=== PATIENT | male | born 1980 | race Two or more races ===

== ENCOUNTER 2022-11-24 04:58 | Emergency (ER) | payer MEDICAID ==
[~2022-11-24] VITALS: Ht 167.6 cm; Wt 95.4 kg
[2022-11-24 06:10] LABS: Urine Bacteria NONE SEEN /hpf (None Seen); Urine Blood Negative /uL (Negative); Urine Clarity Clear (Clear); Urine Color Yellow (Yellow); Urine Mucus FEW (None Seen); Urine Protein, UAD TRACE (Negative); Urine Specific Gravity 1.036 (1.001-1.035); Urine Urobilinogen Normal (Negative); Urine WBC <1 /hpf (0 - 3)
[2022-11-24 06:22] LABS: Chloride 108 mmol/L (98-107); Potassium 3.9 mmol/L (3.5-5.1); Sodium 139 mmol/L (136-145)
[2022-11-24 06:24] LABS: Anion Gap 4.6 (5-15); Carbon Dioxide 26.4 mmol/L (20-30)
[2022-11-24 06:29] LABS: BUN/Creatinine Ratio 18.4 (10.0-20.0); Blood Urea Nitrogen 18 mg/dL (9-23); Glucose 106 mg/dL (74-106)
[2022-11-24 06:30] LABS: Alkaline Phosphatase 58 U/L (46-116); Lipase 53 U/L (12-53)
[2022-11-24 06:31] LABS: Alanine Aminotransferase 64 U/L (7-40); Albumin 4.4 g/dL (3.2-4.8); Aspartate Aminotransferase 35 U/L (13-40)
[2022-11-24 06:32] LABS: Bilirubin, Total 0.4 mg/dL (0.2-1.0)
[2022-11-24 06:36] LABS: Basophils # (auto) 0.1 10 ^3/uL (0-0.2); Basophils % (auto) 0.8 % (0.0-2.0); Eosinophils # (auto) 0.2 10 ^3/uL (0-0.8); Hemoglobin 15.3 g/dL (13.5-17.5); Lymphocytes # (auto) 1.8 10 ^3/uL (0.4-5.4); Lymphocytes % (auto) 25.3 % (10.0-50.0); Mean Corpuscular Hemoglobin 28.8 pg (28.0-32.0); Mean Corpuscular Hgb Conc. 32.5 g/dL (32.0-36.0); Mean Corpuscular Volume 88.6 fL (80.0-100.0); Monocytes # (auto) 0.6 10 ^3/uL (0-1.3); Monocytes % (auto) 8.2 % (0.0-12.0); Neutrophils # (auto) 4.6 10 ^3/uL (1.6-8.6); Neutrophils % (auto) 62.7 % (37.0-80.0); Red Blood Cells 5.31 10^6/uL (4.5-5.90); Red Cell Distribution Width 13.3 % (11.8-14.3); White Blood Cell 7.3 10^3/uL (4.4-10.8)
[2022-11-24] MEDS ORDERED: POLY335015 PO (10:49)
[2022-11-24] MEDS ORDERED: ONDA-155 PO (10:49)
[2022-11-24 12:39] VITALS: BP 136/98; PULSE 64; RESP 16; TEMP 98.7; O2SAT 99
== END 2022-11-24 12:41 | disposition home or self-care (01) ==
LOC: ER 04:58
DX: R10.84 Generalized abdominal pain (principal); K59.00 Constipation, unspecified; I10 Essential (primary) hypertension; Z90.49 Acquired absence of other specified parts of digestive tract
CPT/HCPCS: 36415; 74176; 80053; 81001; 83690; 85025